=== PATIENT | female | born 1955 | race Caucasian/White ===

== ENCOUNTER 2017-07-02 12:44 | Inpatient (IN) ==
--- NOTE | 2017-07-01 21:27 | Discharge Summary ---
<Charlotte Preston E - Last Filed: 07/01/17 21:25> Date of Encounter: 07/01/17 - Discharge Diagnosis (1) Osteoarthritis of knees, bilateral Priority: Primary Status: Chronic Qualifiers: Osteoarthritis type: unspecified Qualified Code(s): M17.0 - Bilateral primary osteoarthritis of knee (2) CAD (coronary artery disease) Priority: Secondary Status: Chronic Qualifiers: Coronary Disease-Associated Artery/Lesion type: unspecified vessel or lesion type [place] vs. transplanted heart: unspecified whether [place] or transplanted heart Associated angina: angina presence unspecified Qualified Code(s): I25.10 - Atherosclerotic heart disease of [place] coronary artery without angina pectoris (3) Obesity Priority: Secondary Status: Chronic Qualifiers: Obesity type: unspecified obesity type Obesity classification: unspecified obesity classification Serious obesity comorbidity presence: unspecified whether serious comorbidity present Qualified Code(s): E66.9 - Obesity, unspecified; Z68.35 - Body mass index (BMI) 35.0-35.9, adult; Z68.35 - Body mass index (BMI) 35.0-35.9, adult (4) Palpitations Priority: Secondary Status: Chronic (5) HTN (hypertension) Priority: Secondary Status: Chronic (6) Tobacco dependence Priority: Secondary Status: Chronic (7) BOBBY on CPAP Priority: Secondary Status: Chronic (8) History of cervical cancer Priority: Secondary Status: Chronic (9) History of alcohol dependence Priority: Secondary Status: Chronic (10) Osteopenia Priority: Secondary Status: Chronic Qualifiers: Osteopenia location: unspecified Qualified Code(s): M85.80 - Other specified disorders of bone density and structure, unspecified site - Discharge Medications Home Medications: Aspirin Enteric Coated [Aspirin EC] 81 mg PO DAILY 04/12/15 [History] Atorvastatin Calcium [Lipitor] 20 mg PO HS 04/12/15 [History] Fluticasone Propionate Nasal [Flonase] 1 spray NS DAILY 04/12/15 [History] Lisinopril/Hydrochlorothiazide [Zestoretic 20-25 mg Tablet] 1 each PO DAILY 02/16 [History] Metoprolol [Lopressor] 25 mg PO BID 04/12/15 [History] Omeprazole [PriLOSEC] 40 mg PO DAILY 04/12/15 [History] Ranitidine HCl [Zantac] 300 mg PO BID 04/12/15 [History] Aspirin Enteric Coated [Aspirin EC] 325 mg PO DAILY 21 Days #21 tablet. [Rx] OxyCODONE Immed Rel [Roxicodone 5 MG] 5 mg PO Q6HR PRN 7 Days #28 tablet [Rx] BuPROPion XL (24 HR) [Wellbutrin Xl] 150 mg PO DAILY 07/02/17 [History] Duloxetine HCl [Cymbalta] 60 mg PO DAILY 07/02/17 [History] Nitroglycerin [Nitrostat] 0.4 mg SL Q5M PRN 07/02/17 [History] Allergies/Adverse Reactions: 3 Allergy/AdvReac Type Severity Reaction Status Date / Time ciprofloxacin [From Cipro] Allergy Rash Verified 07/02/17 13:20 Primary care physician: Nathalia Stauffer CNP - Patient Status Disposition: Transfer Inpatient Rehab Fac Condition: Good - Discharge Instructions Follow Up With: Nathalia Stauffer CNP [Primary Care Provider] - - Hospital Course Hospital course: Ms. Sommers is a 61 year old female - Time Spent with Patient Total time spent providing and/or coordinating discharge services: <Benjamin Galvez - Last Filed: 07/05/17 08:12> Date of Encounter: 07/05/17 Time of Encounter: 08:11 - Discharge Diagnosis (1) H/O metal allergy Priority: Secondary Status: Chronic (2) Osteoarthritis of knees, bilateral Priority: Primary Status: Chronic Qualifiers: Osteoarthritis type: unspecified Qualified Code(s): M17.0 - Bilateral primary osteoarthritis of knee (3) CAD (coronary artery disease) Priority: Secondary Status: Chronic Qualifiers: Coronary Disease-Associated Artery/Lesion type: unspecified vessel or lesion type [place] vs. transplanted heart: unspecified whether [place] or transplanted heart Associated angina: angina presence unspecified Qualified Code(s): I25.10 - Atherosclerotic heart disease of [place] coronary artery without angina pectoris (4) Obesity Priority: Secondary Status: Chronic Qualifiers: Obesity type: unspecified obesity type Obesity classification: adult class 2 (BMI 35 - 39.9) Serious obesity comorbidity presence: unspecified whether serious comorbidity present Body mass index: BMI 35.0-35.9 Qualified Code(s) : E66.9 - Obesity, unspecified; Z68.35 - Body mass index (BMI) 35.0-35.9, adult ; Z68.35 - Body mass index (BMI) 35.0-35.9, adult (5) HTN (hypertension) Priority: Secondary Status: Chronic Qualifiers: Hypertension type: unspecified Qualified Code(s): I10 - Essential (primary ) hypertension (6) Tobacco dependence Priority: Secondary Status: Chronic (7) BOBBY on CPAP Priority: Secondary Status: Chronic (8) History of cervical cancer Priority: Secondary Status: Chronic (9) History of alcohol dependence Priority: Secondary Status: Chronic (10) Osteopenia Priority: Secondary Status: Chronic Qualifiers: Osteopenia location: unspecified Qualified Code(s): M85.80 - Other specified disorders of bone density and structure, unspecified site (11) Status post total bilateral knee replacement Priority: Primary Status: Acute (12) Acute blood loss anemia Priority: Primary Status: Acute Primary care physician: Nathalia Stauffer CNP - Patient Status Functional capacity at discharge: uses cane/walker Overall status at discharge: patient is progressing back to baseline - Hospital Course Hospital course: Ms. Sommers is a 61 year old female Postop bilateral total knee replacements. Patient with coffee-ground emesis postop seen and evaluated by the general surgery team. Patient with acute blood loss anemia discharge hemoglobin 8.8. The patient had an uneventful postoperative course. They received antibiotics and physical therapy and were discharged in stable condition. There will follow -up in the office in 2 weeks. - Time Spent with Patient Total time spent providing and/or coordinating discharge services:
--- NOTE | 2017-07-01 21:31 | Physician Discharge Referral ---
ExtendedCare Referral Info Transfer To: [facility] Provider in Charge: Dr Benjamin Galvez - Diagnosis (1) Status post total bilateral knee replacement Priority: Primary Status: Acute (2) Osteoarthritis of knees, bilateral Status: Chronic (3) CAD (coronary artery disease) Priority: Secondary Status: Chronic (4) Obesity Priority: Secondary Status: Chronic (5) Palpitations Priority: Secondary Status: Chronic (6) HTN (hypertension) Priority: Secondary Status: Chronic (7) Tobacco dependence Priority: Secondary Status: Chronic (8) BOBBY on CPAP Priority: Secondary Status: Chronic (9) History of cervical cancer Priority: Secondary Status: Chronic (10) History of alcohol dependence Priority: Secondary Status: Chronic (11) Osteopenia Priority: Secondary Status: Chronic Expected Duration of Placement: less than 30 days Prognosis: Good Aware of Diagnosis: Patient Aware of Prognosis: Patient - Transfer Medications Prescriptions: OxyCODONE Immed Rel [Roxicodone 5 MG] 5 mg PO Q6HR PRN 7 Days #28 tablet PRN Reason: Severe Pain Aspirin Enteric Coated [Aspirin EC] 325 mg PO DAILY 21 Days #21 tablet. [place] Medications: Aspirin Enteric Coated [Aspirin EC] 81 mg PO DAILY 04/12/15 [History] Atorvastatin Calcium [Lipitor] 20 mg PO HS 04/12/15 [History] Calcium Carbonate [Tums] 500 mg PO DAILY 04/12/15 [History] Cholecalciferol (Vitamin D3) [Vitamin D3] 400 unit PO DAILY 04/12/15 [History] Clindamycin [Cleocin] 300 mg PO Q8HR #6 capsule 04/12/15 [Rx] Fluticasone Propionate Nasal [Flonase] 1 spray NS DAILY 04/12/15 [History] Isosorbide MONOnitrate (24 HR) [Imdur] 120 mg PO DAILY 04/12/15 [History] Lisinopril/Hydrochlorothiazide [Zestoretic 20-25 mg Tablet] 1 each PO DAILY 02/16 [History] Meloxicam [Mobic] 15 mg PO DAILY 04/12/15 [History] Metoprolol [Lopressor] 25 mg PO DAILY 04/12/15 [History] Omeprazole [PriLOSEC] 40 mg PO DAILY 04/12/15 [History] OxyCODONE Immed Rel [Roxicodone 5 MG] 5 - 10 mg PO Q6HR PRN #30 tablet 04/12/15 [Rx] Potassium Chloride 20 meq PO DAILY 04/12/15 [History] Ranitidine HCl [Zantac] 300 mg PO BID 04/12/15 [History] Nitrofurantoin (BID) [Macrobid] 100 mg PO BID #14 capsule 04/05/16 [Rx] Phenazopyridine HCl [Pyridium] 200 mg PO TID #6 tab 04/05/16 [Rx] Aspirin Enteric Coated [Aspirin EC] 325 mg PO DAILY 21 Days #21 tablet. [Rx] OxyCODONE Immed Rel [Roxicodone 5 MG] 5 mg PO Q6HR PRN 7 Days #28 tablet [Rx] Allergies/Adverse Reactions: 3 Allergy/AdvReac Type Severity Reaction Status Date / Time Amoxicillin Allergy Rash Verified 02/20/17 11:14 - Respiratory Orders Smoking Cessation: Smoking cessation has been advised. For more information, call the [employer] Quit Line at 1-608-SBRV-NOW. - Ancillary Orders May use pressure relief devices daily prn, May go on CONNER w/family/respon libertarian w /meds at nurse discretion PRN, May consult with Dentist, Photographer Portrait, Director Group Sales PRN - Mobility Orders Chair, Ambulate - Rehabiliation Orders Rehab Potential: Good Rehab Orders: Evaluation for Physical Therapy, Evaluation for Occupational Therapy Other: Total Knee replacement Precautions x 6 weeks Apply cold therapy wrap 3-6x/day for 20 minutes at a time. Encourage ambulation throughout the day and incentive spirometer 10x/hour. Elevate affected extremity above heart as tolerated. Brace: Wear knee immobilizer at night x 2 weeks. - Treatments Skin tear care topically daily PRN per policy List/Other: Opsite placed. Keep dressing intact until first follow up appointment. If > 50% saturated, notify office, remove dressing and place appropriate dressing back in place. Leave Zipline intact. Opsite dressing is water resistant, not water- proof. OK to shower, but do not get dressing wet. - Diet Orders Regular CERTIFICATION: I certify that the transfer of the above named patient to an Extended Care Facility is necessary for the continuing treatment of the diagnosis listed. The above information is true and accurate reflection of patient's current condition. Confidential - Redisclosure prohibited without a patient's written consent.
[2017-07-02] MEDS ORDERED: Albuterol 2.5 MG/3 ML NEBULIZER IH ONE (12:57)
[2017-07-02] MEDS ORDERED: CeFAZolin Syr 2,000MG/20 ML 2,000 MG/20 ML SYRINGE IVPB ONE (12:57)
[2017-07-02] MEDS ORDERED: Plasma-Lyte A (PH 7.4) 1,000 ML IVC SCH (13:00)
[2017-07-02] MEDS ORDERED: Balanced Salt Irrig Soln. IR ONE (13:07)
--- NOTE | 2017-07-02 13:46 | History & Physical Report ---
Date of Encounter: 07/02/17 Time of Encounter: 13:45 24 Hour HP Update - Instructions Instructions: If the History and Physical is less than 30 days old and was completed prior to A.M. admission and or procedure and has NOT been updated on calendar day of procedure please complete this update prior to performing procedure. - Update Patient reports changes in Medical Condition: No Changes in examination, assessment, or condition: No Changes in Medication: No Preop tests/diagnostics Reviewed: Yes Surgery Remains Indicated: Yes Consent for Planned Operative Procedure(s) Verified: Yes - Pre-Operative Checklist Preoperative Checklist Indicated: No Prophylactic Antibiotic Ordered: Yes Is VTE Prophylaxis Indicated?: Yes
--- NOTE | 2017-07-02 14:14 | Anesthesia Evaluation PreOp ---
Date of Encounter: 07/02/17 Time of Encounter: 14:12 - Past History Planned Operation: Bilateral Total Knee Arthroplasty Cardiac History: HTN, Hyperlipidemia Pulmonary History: Smoker (49 years), COPD, BOBBY Dx POLITICAL WORKER History: Seizures (not being medically treated) Other Medical History: GERD Anesthesia History: No Prior Anesthetic Complications, Past Anesthesia Alcohol Use: occasionally Drug use: none Medications and Allergies Aspirin Enteric Coated [Aspirin EC] 81 mg PO DAILY 04/12/15 [History] Atorvastatin Calcium [Lipitor] 20 mg PO HS 04/12/15 [History] Fluticasone Propionate Nasal [Flonase] 1 spray NS DAILY 04/12/15 [History] Lisinopril/Hydrochlorothiazide [Zestoretic 20-25 mg Tablet] 1 each PO DAILY 02/16 [History] Metoprolol [Lopressor] 25 mg PO BID 04/12/15 [History] Omeprazole [PriLOSEC] 40 mg PO DAILY 04/12/15 [History] Ranitidine HCl [Zantac] 300 mg PO BID 04/12/15 [History] Aspirin Enteric Coated [Aspirin EC] 325 mg PO DAILY 21 Days #21 tablet. [Rx] OxyCODONE Immed Rel [Roxicodone 5 MG] 5 mg PO Q6HR PRN 7 Days #28 tablet [Rx] BuPROPion XL (24 HR) [Wellbutrin XL] 150 mg PO DAILY 07/02/17 [History] Duloxetine HCl [Cymbalta] 60 mg PO DAILY 07/02/17 [History] Nitroglycerin [Nitrostat] 0.4 mg SL Q5M PRN 07/02/17 [History] 3 Allergy/AdvReac Type Severity Reaction Status Date / Time ciprofloxacin [From Cipro] Allergy Rash Verified 07/02/17 13:20 - Meds/Allergy Pre-op Review Medications Reviewed: Yes Allergies Reviewed: Yes Beta Blockers on Current Med List: Yes If Beta Blockers taken, Date/Time (Last Dose taken): 07/02/2017 at 0830 Anesthesia Results - Labs Laboratory Tests 06/14/17 06/14/17 06/14/17 11:45 11:45 11:45 WBC 5.3 Hgb 13.2 Hct 39.9 Plt Count 301 PT 10.1 INR 0.9 APTT 28.8 Sodium 138 Potassium 4.0 BUN 17 Creatinine 0.83 - Imaging EKG: report reviewed (06/14/2017 SINUS BRADYCARDIA MODERATE VOLTAGE CRITERIA FOR LVH, CONSIDER NORMAL VARIANT POSSIBLE ANTERIOR MYOCARDIAL INFARCTION, PROBABLY OLD) Additional studies: 07/13/2016 Echo Impressions: Sinus bradycardia. An intermittent ectopic atrial rhythm is also noted. Normal left ventricular size and systolic function, LVEF 60-65%. Normal right ventricular size and function. No significant valvular dysfunction. No evidence of pulmonary hypertension. 10/19/2014 LEFT HEART CATH Indications: ANGINA CCS II-III Impressions: Mild atherosclerotic coronary artery disease. The left ventricle is normal and has normal contractility EF 65% Recommendations: Optimal medical therapy of patient's disease. Aggressive risk factor modification. 09/14/2014 Stress Impression: The exercise capacity was average. Patient exercised for 7:10 minutes on a modified Marcos protocol, achieving 9 METs and 95% of maximum predicted heart rate. Patient had mild chest pain/pressure before the exam started and during exercise. Exercise ECG is negative for ischemia. Gated LVEF > 70%. Perfusion imaging was negative for ischemia or infarct. Anesthesia Exam O2 Sat Height 1.6 m Height 1.6 m Height 1.6 m Weight 90.265 kg Weight 90.265 kg Weight 90.265 kg O2 Sat by Pulse Oximetry 95 Vital Signs Temp Pulse Resp BP Pulse Ox 97.9 F 67 18 115/78 95 07/02/17 12:58 07/02/17 12:58 07/02/17 12:58 07/02/17 12:58 07/02/17 12:58 Height: 5'3'' Weight: 199 lbs NPO (# of Hours): 8 Pain Scale: 0 Pain Scale Used: Numeric (1 - 10) - HEENT Pupil (Motor): EOMI Mallampati: III Teeth: Normal Oral Opening: Greater than 3 - POLITICAL WORKER LOC: Oriented POLITICAL WORKER Motor: Normal RUE, Normal LUE, Normal RLE, Normal LLE, Normal Face POLITICAL WORKER Sensory: Normal: RUE, LUE, RLE, LLE, Face - Cardiac Rhythm: Regular Murmur: None - Pulmonary Breath Sounds: bilateral Clear Respiratory Effort: Symmetrical Anesthesia Assess/Plan ASA Score: 3 Modified Saul Scale for Level of Consciousness: Cooperative, oriented, and tranquil Anesthetic Plan: Regional Monitoring Plan: Standard Monitors Recovery Plan: PACU
[2017-07-02] MEDS ORDERED: *HR* Midazolam HCl 5 MG/5 ML VIAL IVP ONE (16:18)
[2017-07-02] MEDS ORDERED: *HR* Ropivacaine/PF 0.2% 10 ML AMPUL EP ONE (16:49)
[2017-07-02] MEDS ORDERED: Lidocaine -MPF 2% 2 ML VIAL ONE (17:02)
[2017-07-02] MEDS ORDERED: *HR* FentaNYL (PF) 100 MCG/2 ML VIAL ONE (17:15)
[2017-07-02] MEDS ORDERED: Dexamethasone 4 MG/ML VIAL ONE (17:30)
[2017-07-02] MEDS ORDERED: Ondansetron 4 MG/2 ML VIAL ONE (17:30)
[2017-07-02] MEDS ORDERED: EPHEDrine 50 MG/ML VIAL ONE (17:33)
[2017-07-02] MEDS ORDERED: *HR* Ropivacaine/PF 0.2% 10 ML AMPUL INFILT ONE (17:37)
--- NOTE | 2017-07-02 17:55 | Anesthesia Procedures ---
Date of Encounter: 07/02/17 Time of Encounter: 16:30 Procedures: Anesthesia - Epidural/Spinal Patient ID/Chart reviewed: Yes Patient examined: Yes Consent Obtained: Yes Supplemental Oxygen Rate (L/min): 2 Sedation: Versed (mg): 5 Site Prep: Aseptic Technique, Sterile prep and drape, Povidone-Iodine 1% Patient position: upright Local Anesthetic: Lidocaine 1% Amount of Local Anesthetic used: 2 Touhy Needle Gauge: 19 Catheter Depth at Skin (cm): 5 Test Dose (1.5% Lido + Epi): Volume given (mls): 5 Test Dose Result: Negative Loading Dose: 0.25% Marcaine (mls): 5 Loading Dose Administered: Thru Catheter Catheter Secured in Place: Tegaderm, Tape Interspace Used: L4-L5 Loss of Resistance (SERA): Yes Blood: No CSF: No Paresthesia: No
[2017-07-02] MEDS ORDERED: Ropivacaine/PF 0.2% 200 MG/100 ML INFUS..BTL EP SCH (18:00)
[2017-07-02] MEDS ORDERED: *HR* Phenylephrine 10 MG/ML VIAL ONE (18:01)
--- NOTE | 2017-07-02 18:28 | Orthopedic Operative Note ---
Date of procedure: 07/02/17 Pre-op diagnosis: biLateral knee arthritis Post-op diagnosis: same Procedure: Procedure: Bilateral Total knee replacement Estimated blood loss:400 cc Hardware: Metal and polyethylene replacement. Biomet titanium Femur: 2.5 Tibia: 71 PS insert: 14+ Patella: 37 Exam Under anesthesia: Loss of full extension bilaterally 10 degrees full flexion and no instability Procedural Notes: Grade 3 arthritic changes both knees medial compartment and patellofemoral joint. Operative procedure: The patient was brought to the operating room and placed on the operating room table. After general anesthesia was administered the operative knee was examined. Findings were noted in the exam under anesthesia. The both operative extremity was prepped and draped in sterile surgical fashion. The patient received IV antibiotics prior to skin incision. Surgery began with the left knee followed by the right knee any differences will be highlighted otherwise would be one dictation for both knees. A standard midline incision was made centered over the patella. The incision was made through the skin and subcutaneous tissue. A medial parapatellar tendon approach was performed. Care was taken to preserve tissue along the medial aspect of the patella. And to protect the patella tendon. The deep MCL was released off the medial tibia. The infra patella fat pad was excised. Knee was brought into flexion. Both knees had grade 3 arthritic changes medial compartment and patellofemoral joint. The entry hole was made for the intramedullary femoral guide. The guide was seated in 6 degrees of valgus. Anterior cut was made followed by the distal cut. The ACL the PCL the medial and the lateral menisci were excised. The tibia was subluxed forward. The entry hole was made for the intramedullary tibial guide. Guide was seated to resect 2 mm off the more abnormal side. The knee was brought into flexion the distal femur was sized both the sized to 62.5. The femoral guide was seated, the anterior cut was made followed by the posterior condylar cut, followed by the chamfer cuts. The finishing guide was seated the box cut was made and the lug holes were drilled. The tibia was sized both to 71, the tibial tray was seated and prepared with the large drill followed by the fin cutter. Trial reduction revealed full extension no varus valgus instability with the appropriate 14 PS plus Christina. The patella was everted and cut was made at the level of the insertion of the quadriceps and patella tendon. The patella was sized 37 bilateral the guide was seated and the lug holes are drilled. Trial reduction revealed excellent patella tracking. All trial components were removed all bony surfaces were irrigated. The tibia was cemented first followed by the femur. 14 PS plus Christina was seated and the knee was brought into full extension. The patella was cemented and held in place with the patellar holding clamp. After the cement had hardened, the knee sat for 2 minutes with a antimicrobial saline solution. The PA closed the left knee I closed the right knee. The knee was then irrigated out with 2 L of pulse irrigation. The extensor mechanism was closed with #2 FiberWire suture and #2 PDS suture. The subcutaneous tissue was then irrigated and closed deep with #1 PDS suture superficially with 0 PDS suture and skin was closed with skin sung. The patient was then placed in a sterile dressing and a postoperative brace extubated and transferred to recovery room in stable condition. Anesthesia: MAC, spinal Surgeon: Benjamin Galvez Was there an assistant teacher primary present: Yes Production Line Manager: Charlotte Preston Estimated blood loss (cc): 400 Condition: stable Disposition: PACU
[2017-07-02] MEDS ORDERED: *HR* OxyCODONE/APAP 5/325 TABLET PO PRN (19:10)
[2017-07-02] MEDS ORDERED: Ondansetron 4 MG/2 ML VIAL IVP PRN (19:10)
[2017-07-02 19:12] LABS: Hematocrit 36.4 % (35.3-44.9); Hemoglobin 12.1 g/dL (11.5-15.4)
--- NOTE | 2017-07-02 19:43 | Anesthesia Evaluation Post Op ---
Date of Encounter: 07/02/17 Time of Encounter: 19:35 - Vital Signs Vital Signs: Vital Signs/O2 Sat/Glucose, Most Current Temp Pulse Resp BP Pulse Ox 07/02/17 19:30 98.0 F 64 14 105/62 97 07/02/17 19:20 63 14 101/67 92 07/02/17 19:10 61 16 106/63 93 07/02/17 19:00 97.7 F 65 16 92/62 99 07/02/17 18:50 64 16 107/64 92 07/02/17 18:40 64 16 80/51 95 07/02/17 18:30 97.9 F 68 16 82/48 92 - Lungs Lungs: Clear Ascult./Percussion - Airway Airway: Non-obstructed - Cardiovascular Regular Rate - Mental Status Mental Status: Alert & Oriented, Answers Appropriately - Pain Pain Scale: 0 - Nausea Vomiting Nausea Vomiting: Not Present - Hydration Hydration: Ice chips - Discharge PostOp Status: Transfer Patient to floor
[2017-07-02] MEDS: *HR* Enoxaparin 30 MG/0.3 ML SYRINGE SQ SCH ×3 (20:39→22:49)
[2017-07-02] MEDS ORDERED: Nitroglycerin 0.4 MG TAB.SUBL SL PRN (22:12)
[2017-07-02] MEDS ORDERED: Temazepam 15 MG CAPSULE PO PRN (22:12)
[2017-07-02] MEDS ORDERED: Naloxone 0.4 MG/ML INJ IVP PRN (22:12)
[2017-07-02] MEDS ORDERED: Sennosides 8.6 MG TABLET PO PRN (22:12)
[2017-07-02] MEDS ORDERED: MOM Conc 10 ML UD.LIQ PO PRN (22:12)
[2017-07-02] MEDS: CeFAZolin Premix DUPLEX 2,000 MG/50 ML BAG IVPB SCH (22:38)
[2017-07-02] MEDS: Ringers Solution, Lactated 1,000 ML IVC SCH (22:38)
[2017-07-02] MEDS: Famotidine 20 MG TABLET PO SCH (22:45)
[2017-07-03] MEDS: Ondansetron 4 MG/2 ML VIAL IVP PRN ×2 (01:20→07:39)
[2017-07-03] MEDS: CeFAZolin Premix DUPLEX 2,000 MG/50 ML BAG IVPB SCH (05:32)
[2017-07-03] MEDS ORDERED: Acetaminophen IV 1,000 MG/100 ML INFUS..BTL IVPB ONE ×2 (06:00→07:19)
--- NOTE | 2017-07-03 06:52 | Orthopedics Progress Note ---
Date of Encounter: 07/03/17 Time of Encounter: 06:51 - Assessment and Plan (1) H/O metal allergy Current Visit: Yes Status: Chronic (2) Osteoarthritis of knees, bilateral Current Visit: No Status: Chronic Qualifiers: Osteoarthritis type: unspecified Qualified Code(s): M17.0 - Bilateral primary osteoarthritis of knee (3) CAD (coronary artery disease) Current Visit: No Status: Chronic Qualifiers: Coronary Disease-Associated Artery/Lesion type: unspecified vessel or lesion type [place] vs. transplanted heart: unspecified whether [place] or transplanted heart Associated angina: angina presence unspecified Qualified Code(s): I25.10 - Atherosclerotic heart disease of [place] coronary artery without angina pectoris (4) Obesity Current Visit: No Status: Chronic Qualifiers: Obesity type: unspecified obesity type Obesity classification: adult class 2 (BMI 35 - 39.9) Serious obesity comorbidity presence: unspecified whether serious comorbidity present Body mass index: BMI 35.0-35.9 Qualified Code(s) : E66.9 - Obesity, unspecified; Z68.35 - Body mass index (BMI) 35.0-35.9, adult ; Z68.35 - Body mass index (BMI) 35.0-35.9, adult (5) HTN (hypertension) Current Visit: No Status: Chronic Qualifiers: Hypertension type: unspecified Qualified Code(s): I10 - Essential (primary ) hypertension (6) Tobacco dependence Current Visit: No Status: Chronic (7) BOBYB on CPAP Current Visit: No Status: Chronic (8) History of cervical cancer Current Visit: No Status: Chronic (9) History of alcohol dependence Current Visit: No Status: Chronic (10) Osteopenia Current Visit: No Status: Chronic Qualifiers: Osteopenia location: unspecified Qualified Code(s): M85.80 - Other specified disorders of bone density and structure, unspecified site (11) Status post total bilateral knee replacement Current Visit: No Status: Acute Subjective Interval history: Patient was seen this morning doing well without complaints. Afebrile vital signs stable. Operative extremity: Neurovascularly intact Dressing clean dry and intact Calves nontender Assessment and plan: Continue with postoperative care Hematocrit 36 Objective Vital signs: Vital Signs Temp Pulse Resp BP Pulse Ox 07/03/17 06:41 98.8 F 71 18 106/68 94 07/03/17 03:36 98 F 78 16 100/68 94 07/03/17 00:57 69 16 97/64 94 07/02/17 23:00 97.7 F 67 16 94/59 93 07/02/17 21:45 97.5 F L 79 15 96/60 95 07/02/17 20:45 97.5 F L 74 15 94/58 94 07/02/17 20:15 97.6 F 69 16 93/61 93 07/02/17 19:54 97.5 F L 63 16 99/63 94 07/02/17 19:30 98.0 F 64 14 105/62 97 07/02/17 19:20 63 14 101/67 92 07/02/17 19:10 61 16 106/63 93 07/02/17 19:00 97.7 F 65 16 92/62 99 07/02/17 18:50 64 16 107/64 92 07/02/17 18:40 64 16 80/51 95 07/02/17 18:30 97.9 F 68 16 82/48 92 07/02/17 12:58 97.9 F 67 18 115/78 95 Intake and Output 07/02/17 07/02/17 07/03/17 15:59 23:59 07:59 Intake Total 150 / 150 Output Total 1000 / 1000 100 / 100 Balance -850 / -850 -100 / -100 Intake: IV Fluids 50 / 50 Ancef Premix DUPLEX 2,000 mg In 50 / 50 50 ml @ 100 mls/hr IVPB Q8H [facility] Rx#:[id number] Oral 100 / 100 Output: Urine 0 / 0 Estimated Blood Loss 400 / 400 Catheter 600 / 600 100 / 100 Urethral (Liao) 300 / 300 Other: Weight 90.265 kg 117.6 kg Patient Weight 07/03/17 23:59 Weight 117.6 kg - Labs CBC & BMP: 07/02/17 19:05 - VTE Documentation of Mechanical Device: Venous foot pump, device Consult Discharge Plan - Plan Referrals: Nathalia Stauffer, COMPLETION SUPERVISOR [Primary Care Provider] -
[2017-07-03 07:00] LABS: Hemoglobin 11.9 g/dL (11.5-15.4)
[2017-07-03] MEDS ORDERED: *HR* Morphine Sulfate/PF 10 MG/10 ML AMPUL ONE (07:03)
[2017-07-03 07:18] LABS: Calcium 8.7 mg/dL (8.6-10.3); Potassium 4.9 mEq/L (3.5-5.1)
--- NOTE | 2017-07-03 07:21 | Anesthesia Progress Note ---
Date of Encounter: 07/03/17 Time of Encounter: 07:00 Anesthesia Note - Note Note: 07/03/17 07:20 Bolused Patient with 2 mg Duramorph through epidural, epidural cathether pulled, tip intact.
[2017-07-03] MEDS ORDERED: *HR* OxyCODONE Immed Rel 5 MG TABLET PO PRN (07:25)
[2017-07-03] MEDS: Ringers Solution, Lactated 1,000 ML IVC SCH (08:46)
[2017-07-03] MEDS: BuPROPion XL (24 HR) 150 MG TABLET PO SCH (08:54)
[2017-07-03] MEDS: Fluticasone Propionate Nasal 50 MCG/SPRAY BOTTLE NS SCH (08:54)
[2017-07-03] MEDS: Famotidine 20 MG TABLET PO SCH ×2 (08:54→17:26)
[2017-07-03] MEDS ORDERED: Aspirin Enteric Coated 81 MG Tablet PO SCH (09:00)
[2017-07-03] MEDS ORDERED: Famotidine 20 MG TABLET PO ONE (12:51)
[2017-07-03] MEDS: *HR* OxyCODONE Immed Rel 5 MG TABLET PO PRN ×3 (12:58→22:02)
[2017-07-03] MEDS: *HR* Promethazine 25 MG/ML VIAL IVP PRN ×2 (13:29→22:02)
[2017-07-03] MEDS ORDERED: 0.9 % Sodium Chloride 1,000 ML IVC ONE (16:13)
[2017-07-03] MEDS ORDERED: 0.9 % Sodium Chloride 1,000 ML ONE (16:19)
--- NOTE | 2017-07-03 16:33 | Event Note ---
Date of Encounter: 07/03/17 Time of Encounter: 12:00 PCR- POD# 1 b/l bradley Galvez 07/02/17 PCR - Patient seen at bedside with family present per patient's wish. Patient states she is having nausea and vomiting and is not feeling well. Patient noted to drift off to sleep during conversation, easily awoken. Pain control: Adequate - Epidural removed by Dr. Garzon this morning. Participating in PT. All questions and concerns addressed. Educated on use of incentive spirometer, ambulation, and hydration. Patient educated on post-operative restrictions and care. Addressed: N/V - coffee ground emesis per nurse occured this morning - this provider was unaware of such event until time of seeing patient. Patient again had coffee ground emesis while this provider was on the floor. Emesis noted by this provider to be coffee ground in nature with liquid. Requested staff send sample to lab for occult blood testing. Phenergan added for n/v relief as Zofran has been ineffective. D/C plan: ECF
[2017-07-03 16:37] LABS: Hematocrit 33.2 % (35.3-44.9); Hemoglobin 10.9 g/dL (11.5-15.4)
--- NOTE | 2017-07-03 16:37 | Event Note ---
Date of Encounter: 07/03/17 Time of Encounter: 16:[address] Galvez of occult blood - agreed with consult to specialist. Dr. Toussaint consulted and he agreed to evaluate patient regarding emesis.
--- NOTE | 2017-07-03 16:47 | General Surgery Consult Note ---
Date of Encounter: 07/03/17 Time of Encounter: 16:44 Assessment and Plan (1) GERD (gastroesophageal reflux disease) Current Visit: Yes Status: Chronic Will increase PPI therapy to twice daily dosing Add carafate QID Advance to gastric diet as tolerated- avoid citrus or tomato based foods Monitor Hgb/Hct (will re-check in the am) Supportive measures Avoid NSAIDS Check for H. pylori Will continue to follow along to assess the patients progress Consider EGD while inpatient if concern for ongoing bleeding, otherwise may consider evaluating as an outpatient. Qualifiers: Esophagitis presence: esophagitis presence not specified Qualified Code(s) : K21.9 - Gastro-esophageal reflux disease without esophagitis (2) Coffee ground emesis Current Visit: Yes Status: Acute Will increase PPI therapy to twice daily dosing Add carafate QID Advance to gastric diet as tolerated- avoid citrus or tomato based foods Monitor Hgb/Hct (will re-check in the am) Supportive measures Avoid NSAIDS Check for H. pylori Will continue to follow along to assess the patients progress Consider EGD while inpatient if concern for ongoing bleeding, otherwise may consider evaluating as an outpatient. (3) Hiatal hernia Current Visit: Yes Status: Chronic (4) Osteoarthritis of knees, bilateral Current Visit: No Status: Chronic s/p Bilateral total knee replacements with Dr. Galvez 07/02/17 Qualifiers: Osteoarthritis type: unspecified Qualified Code(s): M17.0 - Bilateral primary osteoarthritis of knee History of Present Illness Consult date: 07/03/17 Requesting physician: Benjamin Galvez History of present illness: Jimena Sommers is a 61 year old female who is s/p bilateral total knee replacements with Dr. Galvez 07/02/17. Her past medical history is significant for hypertension, gastroesophageal reflux disease, arthritis, cervical cancer, coronary artery disease, gastritis, colon polyps, hiatal hernia, osteopenia. She states that she vomited last evening and she describes the emesis as coffee ground. She did have a gastroccult which was positive for blood. She admits to a history of significant GERD and states that she takes Zantac and Prilosec on a regular basis to control her symptoms. She reports chronic epigastric discomfort which typically improves with meals. Denies any recent hematemsis or coffee ground emesis prior to last evening. Denies any melena or hematochezia. She states that she has had an EGD in the past- last documented 09/2013. She states that it showed a hiatal hernia, gastritis and reflux. She denies any unexplained weight loss. She denies any bloating. She states that she does feel hungry. We have been asked to see and evaluate the patient for recommendations. Past Med Surg Social Fam HX - Past Medical History Source: patient, old records reviewed Medical history: arthritis, asthma, cancer (cervical), coronary artery disease, GERD, hypertension, RA, other (gastritis, CAD, colon polyps, hiatal hernia) Psychiatric history: no psych history - Past Surgical History Surgical History: knee replacement (bilateral 07/02/17), orthopedic, other ( right shoulder arthroscopy/decompression rotator cuff repair 04/2015), other ( EGD/colonoscopy 09/2013; LEEP procedure) - Social History Smoking Status: Current every day smoker Packs per day: 1 Smokeless Tobacco Status: No Alcohol use: occasionally Drug use: none Current living situation: Home - Independent Activity Level: Independent ambulation - Family History Mother Adopted: [place]: Anne Marie Sommers Age: 82 Family Member Ethnicity: Non- Living Status: Still Living Hx Family Cardiac Disorders: Yes (PR) Hx Family Respiratory Disorders: No Hx Family Cancer: Yes (Breast CA) Hx Family GI Disorders: No Hx Family Genitourinary Disorders: No Hx Family Endocrine Disorder: No Hx Family Musculoskeletal Disorders: No Hx Family Neuromuscular Disorders: No Hx Family Neurologic Disorders: No Hx Family HEENT Disorders: No Hx Family Autoimmune Disorders: No Hx Family Reproductive Disorders: No Hx Family Psychosocial Disorders: No Hx Family Medical Disorders: No Brother Living Status: Cause of : Lung cancer Hx Family Cancer: Yes (lung cancer) Father Living Status: Still Living Hx Family Cardiac Disorders: Yes (CAD) Hx Family Endocrine Disorder: Yes (Diabetes Mellitus) Hx Family Neurologic Disorders: Yes (Dementia) Sister Living Status: Still Living Hx Family Medical Disorders: Yes (brain tumor) Medications and Allergies Aspirin Enteric Coated [Aspirin EC] 81 mg PO DAILY 04/12/15 [History] Atorvastatin Calcium [Lipitor] 20 mg PO HS 04/12/15 [History] Fluticasone Propionate Nasal [Flonase] 1 spray NS DAILY 04/12/15 [History] Lisinopril/Hydrochlorothiazide [Zestoretic 20-25 mg Tablet] 1 each PO DAILY 02/16 [History] Metoprolol [Lopressor] 25 mg PO BID 04/12/15 [History] Omeprazole [PriLOSEC] 40 mg PO DAILY 04/12/15 [History] Ranitidine HCl [Zantac] 300 mg PO BID 04/12/15 [History] Aspirin Enteric Coated [Aspirin EC] 325 mg PO DAILY 21 Days #21 tablet. [Rx] OxyCODONE Immed Rel [Roxicodone 5 MG] 5 mg PO Q6HR PRN 7 Days #28 tablet [Rx] BuPROPion XL (24 HR) [Wellbutrin Xl] 150 mg PO DAILY 07/02/17 [History] Duloxetine HCl [Cymbalta] 60 mg PO DAILY 07/02/17 [History] Nitroglycerin [Nitrostat] 0.4 mg SL Q5M PRN 07/02/17 [History] 3 Allergy/AdvReac Type Severity Reaction Status Date / Time ciprofloxacin [From Cipro] Allergy Rash Verified 07/02/17 13:20 Review of Systems All systems PM: reviewed and no additional remarkable complaints except as stated (in the HPI) All systems PM: A 10-system review of systems was performed and is negative for pertinent findings except as documented above in the HPI. General Surgery Exam Initial Vital Signs Temp Pulse Resp BP Pulse Ox 97.9 F 67 18 115/78 95 07/02/17 12:58 07/02/17 12:58 07/02/17 12:58 07/02/17 12:58 07/02/17 12:58 - General physical appearance well developed, well nourished, no distress - Eyes PERRL, normal ocular movement - ENT normal mucosa, atraumatic, normocephalic - Neck trachea midline - Respiratory normal respiratory effort, clear to auscultation, other (diminished bibasilar bases) - Cardiovascular Cardiovascular exam: Present: RRR - Abdomen Abdomen general surgery: Present: bowel sounds present, soft, non tender - Integumentary Integumentary general surgery: Present: warm and dry - Neurologic Present: CN 2-12 grossly intact - Psychiatric Psychiatric general surgery: Present: A&Ox3 Exam Initial Vital Signs Temp Pulse Resp BP Pulse Ox 97.9 F 67 18 115/78 95 07/02/17 12:58 07/02/17 12:58 07/02/17 12:58 07/02/17 12:58 07/02/17 12:58 Results - Labs 07/03/17 16:28 07/03/17 05:43 Abnormal lab results Hgb 10.9 g/dL (11.5-15.4) L 07/03/17 16:28 Hct 33.2 % (35.3-44.9) L 07/03/17 16:28 BUN 28 mg/dL (6-20) H 07/03/17 05:43 Creatinine 1.23 mg/dL (0.60-1.20) H 07/03/17 05:43 Est GFR ( Amer) 54 (> 60) L 07/03/17 05:43 Est GFR (Non-Af Amer) 45 (> 60) L 07/03/17 05:43 Glucose 166 mg/dL (70-105) H 07/03/17 05:43 Gastric Occult Blood Positive (Negative) A 07/03/17 13:21 Diabetes panel 07/03/17 Range/Units 05:43 Sodium 136 (136-145) mEq/L Potassium 4.9 (3.5-5.1) mEq/L Chloride 103 (98-107) mEq/L Carbon Dioxide 25 (23-29) mEq/L BUN 28 H (6-20) mg/dL Creatinine 1.23 H (0.60-1.20) mg/dL Glucose 166 H (70-105) mg/dL Calcium 8.7 (8.6-10.3) mg/dL Calcium panel 07/03/17 Range/Units 05:43 Calcium 8.7 (8.6-10.3) mg/dL Pituitary panel 07/03/17 Range/Units 05:43 Sodium 136 (136-145) mEq/L Potassium 4.9 (3.5-5.1) mEq/L Chloride 103 (98-107) mEq/L Carbon Dioxide 25 (23-29) mEq/L BUN 28 H (6-20) mg/dL Creatinine 1.23 H (0.60-1.20) mg/dL Glucose 166 H (70-105) mg/dL Calcium 8.7 (8.6-10.3) mg/dL Adrenal panel 07/03/17 Range/Units 05:43 Sodium 136 (136-145) mEq/L Potassium 4.9 (3.5-5.1) mEq/L Chloride 103 (98-107) mEq/L Carbon Dioxide 25 (23-29) mEq/L BUN 28 H (6-20) mg/dL Creatinine 1.23 H (0.60-1.20) mg/dL Glucose 166 H (70-105) mg/dL Calcium 8.7 (8.6-10.3) mg/dL All other labs normal. Consult Discharge Plan - Plan Referrals: Nathalia Stauffer, CONCRETE FINISHER [Primary Care Provider] - - Attending Attestation For this encounter, I have reviewed the RETAIL ADVERTISING SALES MANAGER or PA documentation, treatment plan, and medical decision making; and I have had face to face time with this patient.
[2017-07-03] MEDS: *HR* Enoxaparin 30 MG/0.3 ML SYRINGE SQ SCH (16:52)
[2017-07-04] MEDS: *HR* OxyCODONE Immed Rel 5 MG TABLET PO PRN ×5 (02:54→20:11)
[2017-07-04] MEDS: Ondansetron 4 MG/2 ML VIAL IVP PRN (02:54)
[2017-07-04] MEDS: *HR* Enoxaparin 30 MG/0.3 ML SYRINGE SQ SCH ×2 (03:01→17:07)
[2017-07-04 05:34] LABS: Hematocrit 29.7 % (35.3-44.9); Hemoglobin 9.6 g/dL (11.5-15.4)
[2017-07-04 06:14] LABS: BUN/Creatinine Ratio 37 (6-26); Blood Urea Nitrogen 31 mg/dL (6-20); Calcium 8.3 mg/dL (8.6-10.3); Carbon Dioxide 30 mEq/L (23-29); Chloride 102 mEq/L (98-107); Glucose 119 mg/dL (70-105); Osmolality,Calculated 286 (280-300); Potassium 4.6 mEq/L (3.5-5.1); Sodium 134 mEq/L (136-145); eGFR For African Americans > 60 (> 60); eGFR For Non-African Americans > 60 (> 60)
[2017-07-04] MEDS: Famotidine 20 MG TABLET PO SCH ×2 (06:50→15:20)
[2017-07-04] MEDS: *HR* Promethazine 25 MG/ML VIAL IVP PRN (06:50)
--- NOTE | 2017-07-04 08:58 | Orthopedics Progress Note ---
Date of Encounter: 07/04/17 Time of Encounter: 08:58 - Assessment and Plan (1) H/O metal allergy Current Visit: Yes Status: Chronic (2) Osteoarthritis of knees, bilateral Current Visit: No Status: Chronic Qualifiers: Osteoarthritis type: unspecified Qualified Code(s): M17.0 - Bilateral primary osteoarthritis of knee (3) CAD (coronary artery disease) Current Visit: No Status: Chronic Qualifiers: Coronary Disease-Associated Artery/Lesion type: unspecified vessel or lesion type [place] vs. transplanted heart: unspecified whether [place] or transplanted heart Associated angina: angina presence unspecified Qualified Code(s): I25.10 - Atherosclerotic heart disease of [place] coronary artery without angina pectoris (4) Obesity Current Visit: No Status: Chronic Qualifiers: Obesity type: unspecified obesity type Obesity classification: adult class 2 (BMI 35 - 39.9) Serious obesity comorbidity presence: unspecified whether serious comorbidity present Body mass index: BMI 35.0-35.9 Qualified Code(s) : E66.9 - Obesity, unspecified; Z68.35 - Body mass index (BMI) 35.0-35.9, adult ; Z68.35 - Body mass index (BMI) 35.0-35.9, adult (5) HTN (hypertension) Current Visit: No Status: Chronic Qualifiers: Hypertension type: unspecified Qualified Code(s): I10 - Essential (primary ) hypertension (6) Tobacco dependence Current Visit: No Status: Chronic (7) BOBBY on CPAP Current Visit: No Status: Chronic (8) History of cervical cancer Current Visit: No Status: Chronic (9) History of alcohol dependence Current Visit: No Status: Chronic (10) Osteopenia Current Visit: No Status: Chronic Qualifiers: Osteopenia location: unspecified Qualified Code(s): M85.80 - Other specified disorders of bone density and structure, unspecified site (11) Status post total bilateral knee replacement Current Visit: No Status: Acute (12) Acute blood loss anemia Current Visit: Yes Status: Acute Subjective Interval history: Patient was seen this morning doing well without complaints. Afebrile vital signs stable. Operative extremity: Neurovascularly intact Dressing clean dry and intact Calves nontender Assessment and plan: Continue with postoperative care Hemoglobin 9.6 Objective Vital signs: Vital Signs Temp Pulse Resp BP Pulse Ox 07/04/17 04:14 97.9 F 93 16 156/92 98 07/03/17 20:45 98.4 F 92 18 149/76 95 07/03/17 20:27 98 F 90 17 153/87 95 07/03/17 14:59 97.4 F L 79 18 118/74 93 07/03/17 10:50 96.0 F L 68 18 99/67 94 07/03/17 09:54 98.2 F 76 16 95 Intake and Output 07/03/17 07/04/17 07/04/17 23:59 07:59 15:59 Intake Total 200 / 200 100 / 100 Output Total 500 / 500 Balance 200 / 200 -400 / -400 Intake: Oral 200 / 200 100 / 100 Output: Catheter 500 / 500 Other: Meal Dinner Percent of Meal Consumed 10% - Labs CBC & BMP: 07/04/17 04:53 07/04/17 04:53 Labs: Abnormal lab results Hgb 9.6 g/dL (11.5-15.4) L 07/04/17 04:53 Hct 29.7 % (35.3-44.9) L 07/04/17 04:53 Sodium 134 mEq/L (136-145) L 07/04/17 04:53 Carbon Dioxide 30 mEq/L (23-29) H 07/04/17 04:53 BUN 31 mg/dL (6-20) H 07/04/17 04:53 BUN/Creatinine Ratio 37 (6-26) H 07/04/17 04:53 Glucose 119 mg/dL (70-105) H 07/04/17 04:53 Calcium 8.3 mg/dL (8.6-10.3) L 07/04/17 04:53 Gastric Occult Blood Positive (Negative) A 07/03/17 13:21 - VTE Documentation of Mechanical Device: Venous foot pump, device Consult Discharge Plan - Plan Referrals: Nathalia Stauffer, LEAF BLENDER [Primary Care Provider] -
[2017-07-04] MEDS: BuPROPion XL (24 HR) 150 MG TABLET PO SCH (09:49)
[2017-07-04] MEDS: Fluticasone Propionate Nasal 50 MCG/SPRAY BOTTLE NS SCH (09:50)
[2017-07-04] MEDS ORDERED: Acetaminophen 325 MG TABLET PO PRN (10:40)
--- NOTE | 2017-07-04 10:49 | General Surgery Progress Note ---
Date of Encounter: 07/04/17 Time of Encounter: 10:45 - Assessment and Plan (1) GERD (gastroesophageal reflux disease) Current Visit: Yes Status: Chronic Continue PPI therapy to twice daily dosing Continue carafate QID Continue gastric diet as tolerated- avoid citrus or tomato based foods Monitor Hgb/Hct (will re-check in the am) Supportive measures Avoid NSAIDS Check for H. pylori Will continue to follow along to assess the patients progress Consider EGD while inpatient if concern for ongoing bleeding, otherwise may consider evaluating as an outpatient. Qualifiers: Esophagitis presence: esophagitis presence not specified Qualified Code(s) : K21.9 - Gastro-esophageal reflux disease without esophagitis (2) Coffee ground emesis Current Visit: Yes Status: Acute Continue PPI therapy to twice daily dosing Continue carafate QID Continue gastric diet as tolerated- avoid citrus or tomato based foods Monitor Hgb/Hct (will re-check in the am) Supportive measures Avoid NSAIDS Check for H. pylori Will continue to follow along to assess the patients progress Consider EGD while inpatient if concern for ongoing bleeding, otherwise may consider evaluating as an outpatient. (3) Hiatal hernia Current Visit: Yes Status: Chronic (4) Osteoarthritis of knees, bilateral Current Visit: No Status: Chronic s/p Bilateral total knee replacements with Dr. Galvez 07/02/17 Qualifiers: Osteoarthritis type: unspecified Qualified Code(s): M17.0 - Bilateral primary osteoarthritis of knee Subjective Patient reports: no new complaints, feels better, still having pain, pain is less, tolerating a regular diet (soft diet), voiding w/o difficulty, no flatus, no bowel movement, nausea (improved), afebrile, other (Reports reflux symptoms without vomiting) Objective Vital Signs - Last 8 Hours Temp Pulse Resp BP Pulse Ox 07/04/17 04:14 97.9 F 93 16 156/92 98 Intake and Output 07/03/17 07/04/17 07/04/17 23:59 07:59 15:59 Intake Total 200 / 200 100 / 100 Output Total 500 / 500 Balance 200 / 200 -400 / -400 Intake: Oral 200 / 200 100 / 100 Output: Catheter 500 / 500 Other: Meal Dinner Percent of Meal Consumed 10% - General physical appearance well developed, well nourished, no distress - Eyes normal ocular movement - ENT normal mucosa, atraumatic, normocephalic - Neck Neck exam: trachea midline - Respiratory normal respiratory effort, clear to auscultation - Cardiovascular Cardiovascular exam: Present: RRR - Abdomen Abdomen: Present: bowel sounds present, soft, non tender - Neurologic CN 2-12 grossly intact - Psychiatric oriented to time, oriented to person, oriented to place, speech is normal, memory intact - Labs 07/04/17 04:53 07/04/17 04:53 Diabetes panel 07/04/17 Range/Units 04:53 Sodium 134 L (136-145) mEq/L Potassium 4.6 (3.5-5.1) mEq/L Chloride 102 (98-107) mEq/L Carbon Dioxide 30 H (23-29) mEq/L BUN 31 H (6-20) mg/dL Creatinine 0.83 (0.60-1.20) mg/dL Glucose 119 H (70-105) mg/dL Calcium 8.3 L (8.6-10.3) mg/dL Calcium panel 07/04/17 Range/Units 04:53 Calcium 8.3 L (8.6-10.3) mg/dL Pituitary panel 07/04/17 Range/Units 04:53 Sodium 134 L (136-145) mEq/L Potassium 4.6 (3.5-5.1) mEq/L Chloride 102 (98-107) mEq/L Carbon Dioxide 30 H (23-29) mEq/L BUN 31 H (6-20) mg/dL Creatinine 0.83 (0.60-1.20) mg/dL Glucose 119 H (70-105) mg/dL Calcium 8.3 L (8.6-10.3) mg/dL Adrenal panel 07/04/17 Range/Units 04:53 Sodium 134 L (136-145) mEq/L Potassium 4.6 (3.5-5.1) mEq/L Chloride 102 (98-107) mEq/L Carbon Dioxide 30 H (23-29) mEq/L BUN 31 H (6-20) mg/dL Creatinine 0.83 (0.60-1.20) mg/dL Glucose 119 H (70-105) mg/dL Calcium 8.3 L (8.6-10.3) mg/dL - VTE Documentation of Mechanical Device: Venous foot pump, device Consult Discharge Plan - Plan Referrals: Nathalia Stauffer, FISH FARM MANAGER [Primary Care Provider] - - Attending Attestation For this encounter, I have reviewed the SENIOR LINUX SYSTEMS ENGINEER or PA documentation, treatment plan, and medical decision making; and I have had face to face time with this patient.
[2017-07-04] MEDS: Acetaminophen 325 MG TABLET PO PRN ×2 (12:15→23:01)
[2017-07-04 16:35] LABS: Hematocrit 27.7 % (35.3-44.9); Hemoglobin 9.2 g/dL (11.5-15.4)
[2017-07-05 04:42] LABS: Hematocrit 26.6 % (35.3-44.9); Hemoglobin 8.8 g/dL (11.5-15.4)
[2017-07-05] MEDS: *HR* Enoxaparin 30 MG/0.3 ML SYRINGE SQ SCH ×2 (05:48→17:34)
--- NOTE | 2017-07-05 08:12 | Orthopedics Progress Note ---
Date of Encounter: 07/05/17 Time of Encounter: 08:12 - Assessment and Plan (1) H/O metal allergy Current Visit: Yes Status: Chronic (2) Osteoarthritis of knees, bilateral Current Visit: No Status: Chronic Qualifiers: Osteoarthritis type: unspecified Qualified Code(s): M17.0 - Bilateral primary osteoarthritis of knee (3) CAD (coronary artery disease) Current Visit: No Status: Chronic Qualifiers: Coronary Disease-Associated Artery/Lesion type: unspecified vessel or lesion type [place] vs. transplanted heart: unspecified whether [place] or transplanted heart Associated angina: angina presence unspecified Qualified Code(s): I25.10 - Atherosclerotic heart disease of [place] coronary artery without angina pectoris (4) Obesity Current Visit: No Status: Chronic Qualifiers: Obesity type: unspecified obesity type Obesity classification: adult class 2 (BMI 35 - 39.9) Serious obesity comorbidity presence: unspecified whether serious comorbidity present Body mass index: BMI 35.0-35.9 Qualified Code(s) : E66.9 - Obesity, unspecified; Z68.35 - Body mass index (BMI) 35.0-35.9, adult ; Z68.35 - Body mass index (BMI) 35.0-35.9, adult (5) HTN (hypertension) Current Visit: No Status: Chronic Qualifiers: Hypertension type: unspecified Qualified Code(s): I10 - Essential (primary ) hypertension (6) Tobacco dependence Current Visit: No Status: Chronic (7) BOBBY on CPAP Current Visit: No Status: Chronic (8) History of cervical cancer Current Visit: No Status: Chronic (9) History of alcohol dependence Current Visit: No Status: Chronic (10) Osteopenia Current Visit: No Status: Chronic Qualifiers: Osteopenia location: unspecified Qualified Code(s): M85.80 - Other specified disorders of bone density and structure, unspecified site (11) Status post total bilateral knee replacement Current Visit: No Status: Acute (12) Acute blood loss anemia Current Visit: Yes Status: Acute Subjective Interval history: Patient was seen this morning doing well without complaints. Afebrile vital signs stable. Operative extremity: Neurovascularly intact Dressing clean dry and intact Calves nontender Assessment and plan: Continue with postoperative care Hemoglobin 8.8 discharged today Objective Vital signs: Vital Signs Temp Pulse Resp BP Pulse Ox 07/05/17 06:56 98.1 F 95 18 126/75 95 02/01/18 04:07 97.8 F 79 18 147/80 97 07/04/17 23:25 98.5 F 83 16 155/91 95 07/04/17 21:05 98.2 F 81 18 143/85 94 07/04/17 16:55 98.1 F 90 18 146/82 96 07/04/17 11:30 87 16 154/82 96 Intake and Output 07/04/17 07/05/17 07/05/17 23:59 07:59 15:59 Intake Total 240 / 240 Output Total 300 / 300 Balance -60 / -60 Intake: Oral 240 / 240 Output: Urine 300 / 300 Other: # Voids 1 1 - Labs CBC & BMP: 07/05/17 03:47 07/04/17 04:53 Labs: Abnormal lab results Hgb 8.8 g/dL (11.5-15.4) L 07/05/17 03:47 Hct 26.6 % (35.3-44.9) L 07/05/17 03:47 Sodium 134 mEq/L (136-145) L 07/04/17 04:53 Carbon Dioxide 30 mEq/L (23-29) H 07/04/17 04:53 BUN 31 mg/dL (6-20) H 07/04/17 04:53 BUN/Creatinine Ratio 37 (6-26) H 07/04/17 04:53 Glucose 119 mg/dL (70-105) H 07/04/17 04:53 Calcium 8.3 mg/dL (8.6-10.3) L 07/04/17 04:53 Gastric Occult Blood Positive (Negative) A 07/03/17 13:21 - VTE Documentation of Mechanical Device: Venous foot pump, device Consult Discharge Plan - Plan Referrals: Nathalia Stauffer, EMANATIONS ANALYSIS TECHNICIAN [Primary Care Provider] -
[2017-07-05] MEDS: BuPROPion XL (24 HR) 150 MG TABLET PO SCH (09:28)
[2017-07-05] MEDS: *HR* OxyCODONE Immed Rel 5 MG TABLET PO PRN ×2 (09:30→13:48)
[2017-07-05 10:31] LABS: INR 1.1; Prothrombin Time 12.2 Seconds (9.4-12.1)
[2017-07-05] MEDS: Fluticasone Propionate Nasal 50 MCG/SPRAY BOTTLE NS SCH (12:31)
[2017-07-05] MEDS: Famotidine 20 MG TABLET PO SCH ×2 (12:31→16:55)
[2017-07-05] MEDS ORDERED: *HR* FentaNYL (PF) 100 MCG/2 ML VIAL ONE (15:45)
[2017-07-05] MEDS ORDERED: *HR* Midazolam HCl 5 MG/5 ML VIAL IVP ONE (15:45)
[2017-07-05] MEDS ORDERED: Simethicone 40 MG/0.6 ML MLS IR ONE (16:18)
[2017-07-05] MEDS ORDERED: Tetracaine/Benzocaine/Butamben 200MG/SPRAY (100SPY/BOT) MM ONE (16:18)
[2017-07-05] MEDS ORDERED: *HR* FentaNYL (PF) 100 MCG/2 ML VIAL IVP ONE (16:18)
[2017-07-05] MEDS ORDERED: *HR* Midazolam HCl 2 MG/2 ML VIAL IVP ONE (16:18)
--- NOTE | 2017-07-05 16:18 | Pre-Sedation Evaluation ---
Pre-sedation evaluation - Pre-sedation checklist Date of procedure: 07/05/17 Procedure: EGD Recent Vitals: Last Vital Signs Temp 99.4 F 07/05/17 16:15 Pulse 82 07/05/17 16:15 Resp 16 07/05/17 16:15 BP 123/78 07/05/17 16:15 Pulse Ox 95 07/05/17 16:15 H&P (including ROS) documented in medical record: Yes Previous reaction to sedatives/anesthetics: No Dietary Status: NPO 6 hours prior to procedure Dentition: No loose teeth or bridges, full dentition Possible difficult airway: No ASA Classification *see protocol: CLASS II-Mild systemic disease
[2017-07-05 18:17] VITALS: BP 127/78
== END 2017-07-05 19:30 | DRG 462 ==
LOC: SAMDAY 12:44 → 3NENU 19:35
PROVIDERS: ADMIT Orthopaedic Surgery; ATTEND Orthopaedic Surgery
PROC: ENDOEBX (2017-07-05 15:00)